=== PATIENT | female | born 1965 | race Caucasian/White ===

== ENCOUNTER 2017-05-19 03:05 | Observation (INO) | payer OTHER ==
[2017-05-19] MEDS ORDERED: SODIUM CHLORIDE 0.9% 1,000 ML IV ONE (03:28)
--- NOTE | 2017-05-19 03:30 | ED ---
General Adult HPI - General Chief complaint: GI Bleed Stated complaint: Abdominal Pain Time Seen by Provider: 05/19/17 03:09 Source: patient, RN notes reviewed, old records reviewed Mode of arrival: EMS Limitations: no limitations - History of Present Illness Initial comments: This is a 51-year-old female to the ER for evaluation of GI bleed. Patient is asked accepted in transfer for reevaluation of GI bleed. Patient had prior symptoms in the past. Does see GI doctor out of this hospital. Patient unsure of name. Patient denies any significant abdominal pain does have mild abdominal pain. Her blood per rectum 2 in the emergency room at [facility]. Patient denies feeling of lightheadedness dizziness or weakness. No recent fevers. No nausea vomiting - Related Data Allergies Allergy/AdvReac Type Severity Reaction Status Date / Time medroxyprogesterone AdvReac Unknown Verified 05/19/17 03:29 [From Provera] Review of Systems ROS Statement: Those systems with pertinent positive or pertinent negative responses have been documented in the HPI. ROS Other: All systems not noted in ROS Statement are negative. Past Medical History Past Medical History: Cancer, Fibromyalgia, GERD/Reflux, GI Bleed Additional Past Medical History / Comment(s): gastritis, polycythemia vera (on chemo x 9 yrs) History of Any Multi-Drug Resistant Organisms: None Reported Past Surgical History: Hysterectomy Additional Past Surgical History / Comment(s): upper and lower GI, port insertion and removal Past Psychological History: Anxiety, Bipolar, Depression Smoking Status: Never smoker Past Alcohol Use History: None Reported Past Drug Use History: None Reported General Exam Limitations: no limitations General appearance: alert, in no apparent distress Head exam: Present: atraumatic, normocephalic, normal inspection Eye exam: Present: normal appearance, PERRL, EOMI. Absent: scleral icterus, conjunctival injection, periorbital swelling ENT exam: Present: normal exam, mucous membranes moist Neck exam: Present: normal inspection. Absent: tenderness, meningismus, lymphadenopathy Respiratory exam: Present: normal lung sounds bilaterally. Absent: respiratory distress, wheezes, rales, rhonchi, stridor Cardiovascular Exam: Present: regular rate, normal rhythm, normal heart sounds. Absent: systolic murmur, diastolic murmur, rubs, gallop, clicks GI/Abdominal exam: Present: soft, normal bowel sounds. Absent: distended, tenderness, guarding, rebound, rigid Extremities exam: Present: normal inspection, full ROM, normal capillary refill. Absent: tenderness, pedal edema, joint swelling, calf tenderness Back exam: Present: normal inspection Neurological exam: Present: alert, oriented X3, CN II-XII intact Psychiatric exam: Present: normal affect, normal mood Skin exam: Present: warm, dry, intact, normal color. Absent: rash Course Vital Signs 05/19/17 03:10 Temperature 98.4 F Pulse Rate 95 Respiratory 16 Rate Blood Pressure 149/67 O2 Sat by Pulse 97 Oximetry - Reevaluation(s) Reevaluation #1: 05/19/17 03:30 Transfer paperwork is reviewed, hemoglobin 16, patient does have polycythemia vera Medical Decision Making - Medical Decision Making 51 female DEL with positive GI bleed bright red blood per rectum, patient be admitted for monitoring of hemoglobin and GI evaluation Disposition Clinical Impression: Lower gastrointestinal hemorrhage, Gastrointestinal hemorrhage Disposition: ADMITTED IP TO THIS HOSP Instructions: Gastrointestinal Bleeding (ED) Referrals: Nonstaff,Physician [Primary Care Provider] - 1-2 days
[2017-05-19] MEDS ORDERED: HYDROXYUREA 500 MG CAP PO SCH (09:00)
[2017-05-19 14:33] LABS: Basophils % (A) 0 %; Eosinophils # (A) 0.2 k/uL (0-0.7); Eosinophils % (A) 2 %; HCT 42.9 % (34.0-46.0); HGB 14.6 gm/dL (11.4-16.0); Lymphocytes % (A) 20 %; MCH 33.8 pg (25.0-35.0); MCV 99.6 fL (80.0-100.0); Mean Platelet Volume 7.5; Monocytes # (A) 0.5 k/uL (0-1.0); Monocytes % (A) 5 %; Neutrophils # (A) 6.9 k/uL (1.3-7.7); Neutrophils % (A) 71 %; Platelet Count 363 k/uL (150-450); RDW 13.5 % (11.5-15.5); WBC 9.7 k/uL (3.8-10.6)
[2017-05-19] MEDS ORDERED: busPIRone HCl 10 MG TAB PO PRN (14:35)
--- NOTE | 2017-05-19 15:24 | P.HPIM ---
History of Present Illness 51-year-old female came in with complaints of bright red blood per rectum couple episodes yesterday in couple episodes today. All patient's symptoms started yesterday with abdominal cramping nausea patient's hemoglobin is presently 14.6 yesterday it was around 16.8. Patient does have history of polycythemia rubra vera and patient uses hydroxyurea for that. Patient had a colonoscopy about any ago without any significant abnormalities that were appreciated during that colonoscopy. Patient denied any significant abdominal pain at this point of time. Patient denied any dysuria. Denied any vomiting. Patient had couple episodes of lower GI bleed with significant amount of blood in the stools today Review of Systems REVIEW OF SYSTEMS: CONSTITUTIONAL: No fever, no malaise, no fatigue. HEENT: No recent visual problems or hearing problems. Denied any sore throat. CARDIOVASCULAR: No chest pain, orthopnea, PND, no palpitations, no syncope. PULMONARY: No shortness of breath, no cough, no hemoptysis. GASTROINTESTINAL: As mentioned in HPI NEUROLOGICAL: No headaches, no weakness, no numbness. HEMATOLOGICAL: Denies any bleeding or petechiae. GENITOURINARY: Denies any burning micturition, frequency, or urgency. MUSCULOSKELETAL/RHEUMATOLOGICAL: Denies any joint pain, swelling, or any muscle pain. ENDOCRINE: Denies any polyuria or polydipsia. The rest of the 14-point review of systems is negative. Past Medical History Past Medical History: Cancer, Fibromyalgia, GERD/Reflux, GI Bleed Additional Past Medical History / Comment(s): gastritis, polycythemia vera (on chemo x 9 yrs) History of Any Multi-Drug Resistant Organisms: None Reported Past Surgical History: Hysterectomy Additional Past Surgical History / Comment(s): upper and lower GI, port insertion and removal Past Anesthesia/Blood Transfusion Reactions: No Reported Reaction Past Psychological History: Anxiety, Bipolar, Depression Smoking Status: Never smoker Past Alcohol Use History: None Reported Past Drug Use History: None Reported Medications and Allergies Home Medications Medication Instructions Recorded Confirmed Type Aspirin 325 mg PO DAILY 05/19/17 05/19/17 History Esomeprazole Magnesium [NexIUM] 40 mg PO DAILY 05/19/17 05/19/17 History Hydroxyurea [Hydrea] 1,000 mg PO Q48H 05/19/17 05/19/17 History Hydroxyurea [Hydrea] 500 mg PO Q48H 05/19/17 05/19/17 History Lisinopril [Zestril] 2.5 mg PO DAILY 05/19/17 05/19/17 History Meclizine [Antivert] 25 mg PO DAILY 05/19/17 05/19/17 History Promethazine [Phenergan] 12.5 mg PO Q4HR PRN 05/19/17 05/19/17 History Ranitidine HCl [Zantac] 150 mg PO HS 05/19/17 05/19/17 History busPIRone HCl [Buspar] 10 mg PO DAILY PRN 05/19/17 05/19/17 History risperiDONE 0.5 mg PO HS 05/19/17 05/19/17 History Allergies Allergy/AdvReac Type Severity Reaction Status Date / Time acetaminophen AdvReac Hallucinati Verified 05/19/17 08:19 [From Darvocet-N] ons ibuprofen [From Motrin] AdvReac Unknown Verified 05/19/17 08:19 medroxyprogesterone AdvReac Unknown Verified 05/19/17 08:19 [From Provera] morphine AdvReac Nausea & Verified 05/19/17 08:19 Vomiting propoxyphene AdvReac Hallucinati Verified 05/19/17 08:19 [From Darvocet-N] ons Physical Exam Vitals: Vital Signs Temp Pulse Pulse Resp BP BP Pulse Ox 05/19/17 14:40 98 F 93 16 131/77 97 05/19/17 07:00 98.9 F 92 16 112/55 95 05/19/17 04:36 99.0 F 91 16 110/56 95 05/19/17 04:03 98.1 F 90 18 115/75 05/19/17 03:10 98.4 F 95 16 149/67 97 Intake and Output 05/19/17 05/19/17 05/19/17 06:59 14:59 22:59 Other: # Voids 1 3 # Bowel Movements 1 Weight 107.501 kg PHYSICAL EXAMINATION: GENERAL: The patient is alert and oriented x3, not in any acute distress. Well developed, well nourished. HEENT: Pupils are round and equally reacting to light. EOMI. No scleral icterus. No conjunctival pallor. Normocephalic, atraumatic. No pharyngeal erythema. No thyromegaly. CARDIOVASCULAR: S1 and S2 present. No murmurs, rubs, or gallops. PULMONARY: Chest is clear to auscultation, no wheezing or crackles. ABDOMEN: Soft, nontender, nondistended, normoactive bowel sounds. No palpable organomegaly. MUSCULOSKELETAL: No joint swelling or deformity. EXTREMITIES: No cyanosis, clubbing, or pedal edema. NEUROLOGICAL: Gross neurological examination did not reveal any focal deficits. SKIN: No rashes. Results CBC & Chem 7: 05/19/17 14:19 Thrombosis Risk Factor Assmnt - Choose All That Apply Each Factor Represents 1 point: Age 41-60 years Thrombosis Risk Factor Assessment Total Risk Factor Score: 1 Thrombosis Risk Factor Assessment Level: Low Risk Assessment and Plan Plan: -Lower GI bleed and acute blood loss anemia secondary to that: Unsure of the exact etiology can be diverticular bleeding. Gastric body will evaluated the patient will monitor her closely for any further episodes of GI bleed. -Polycythemia rubra Vera -hypertension: Hold off on OMAR inhibitor because of hypotension. -Fibromyalgia -gastroesophageal reflux disease -Depression For above-mentioned chronic medical problems patient was resumed on appropriate home medications.
[2017-05-19] MEDS: ACETAMINOPHEN TAB 325 MG TAB PO PRN (19:21)
--- NOTE | 2017-05-19 19:44 | CONS ---
CONSULTATION DATE OF DICTATION: 05/19/2017 REASON FOR CONSULTATION: Abdominal pain and bloody diarrhea. HISTORY OF PRESENT ILLNESS: The patient is a 51-year-old pleasant white female with history of myelodysplastic syndrome/polycythemia vera who was transferred from [facility] when she presented with acute onset of lower abdominal pain followed by bloody diarrhea that started yesterday evening. She had intense severe pain associated with sweats and dizziness and subsequently had 2 episodes of diarrhea. Following this, she went to the emergency room at [facility], when she started having bright red blood per rectum. She had about 3 or 4 episodes and was transferred to [facility] for further evaluation. She did have a CT of the abdomen and pelvis done in the emergency room at [facility] that was reported as negative. Her hemoglobin was 15.6 g/dL. Since being here, she is doing much better. Abdominal pain has improved. Her last bowel movement was early this morning with small amount of blood and mucus-yesterday material. She reports no fever, chills, night sweats. No other family members have similar symptoms. Her last colonoscopy at [facility] about a year ago was unremarkable. PAST MEDICAL HISTORY: 1. Myelodysplastic syndrome/polycythemia vera. 2. Fibromyalgia. 3. GERD. PAST SURGICAL HISTORY: 1. Hysterectomy. 2. EGD and colonoscopy a year ago. 3. Anxiety. 4. Depression. HOME MEDICATIONS: 1. Zantac. 2. BuSpar. 3. Risperidone. 4. Phenergan. 5. Antivert. 6. Zestril. 7. Hydrea. 8. Nexium. 9. Aspirin. ALLERGIES: 1. MOTRIN. 2. PROVERA. 3. MORPHINE. 4. DARVOCET. SOCIAL HISTORY: No smoking or alcohol use. FAMILY HISTORY: Unremarkable. REVIEW OF SYSTEMS: CARDIOPULMONARY: No chest pain, shortness of breath. GENITOURINARY: No dysuria or hematuria. MUSCULOSKELETAL: Unremarkable. SKIN: Unremarkable. ENDOCRINE: Unremarkable. PSYCHIATRIC: Unremarkable. NEUROLOGY: Unremarkable. ENT/VISION: Unremarkable. CONSTITUTIONAL: No recent weight loss. No fever, chills, night sweats. HEMATOLOGY: As mentioned above. PHYSICAL EXAMINATION: She appears comfortable. No apparent distress. Vital signs are stable. Blood pressure 149/69, pulse rate 95, temperature 98.4. HEENT EXAMINATION: Unremarkable. Conjunctivae pink. Sclerae anicteric. Oral cavity no lesions. NECK: No JVD or lymph node enlargement. Chest was clear to auscultation. HEART: Regular rate and rhythm. ABDOMEN: Soft. Bowel sounds are positive. Minimal tenderness in the left lower quadrant area. EXTREMITIES: No pedal edema. SKIN: No rashes. NEUROLOGIC: Alert and oriented x3. No focal deficits. LABS: Labs done today show WBC 9.7, hemoglobin 14.6 and platelets are 363. IMPRESSION: This is a lady who presented to the hospital with acute onset of lower abdominal pain followed by bloody diarrhea that started yesterday evening. The clinical picture is very consistent with acute ischemic colitis. Doubt infectious colitis. The patient is already feeling better. No further bleeding since early this morning. CT of the abdomen done at [facility] was unremarkable. She has a history of myeloproliferative disorder with polycythemia vera, which could be the contributing factor for acute ischemic colitis. Her last hemoglobin 14.6 g/dL. RECOMMENDATIONS: 1. Clear liquid diet. 2. No need for any antibiotics. 3. Stool studies. 4. If her symptoms continue to improve, she can be discharged home with outpatient followup in a couple of weeks. 5. Will not plan on any endoscopic intervention, as she had a colonoscopy about a year ago. Thank you for this consultation. MMODL / IJN: [id number] /
[2017-05-19] MEDS ORDERED: risperiDONE 0.5 MG TAB PO SCH (21:00)
[2017-05-19] MEDS ORDERED: PANTOPRAZOLE 40 MG TABLET PO ONE (22:15)
[2017-05-20] MEDS: SODIUM CHLORIDE 0.9% 1,000 ML IV SCH ×2 (05:16→07:56)
[2017-05-20 07:29] LABS: HCT 38.4 % (34.0-46.0); HGB 13.7 gm/dL (11.4-16.0); MCH 35.7 pg (25.0-35.0); MCHC 35.7 g/dL (31.0-37.0); MCV 100.2 fL (80.0-100.0); Mean Platelet Volume 7.1; Platelet Count 346 k/uL (150-450); RBC 3.83 m/uL (3.80-5.40); RDW 13.6 % (11.5-15.5); WBC 6.4 k/uL (3.8-10.6)
[2017-05-20] MEDS ORDERED: PANTOPRAZOLE 40 MG TABLET PO SCH (07:30)
[2017-05-20 07:42] LABS: Anion Gap 10 mmol/L; Blood Urea Nitrogen 8 mg/dL (7-17); Carbon Dioxide 24 mmol/L (22-30); Chloride 108 mmol/L (98-107); Glucose 93 mg/dL (74-99); Potassium 4.3 mmol/L (3.5-5.1); Sodium 142 mmol/L (137-145)
[2017-05-20] MEDS: ACETAMINOPHEN TAB 325 MG TAB PO PRN (07:56)
[2017-05-20] MEDS ORDERED: HYDROXYUREA 500 MG CAP PO SCH (09:00)
--- NOTE | 2017-05-20 12:24 | PN ---
PROGRESS NOTE DATE OF SERVICE: May 20, 2017. REQUESTING PHYSICIAN: None. The patient is a 51-year-old pleasant white female admitted to hospital with acute onset of lower abdominal pain followed by bloody diarrhea of 1 day duration. She was transferred from [facility]. She had a CT of the abdomen and pelvis done there which was unremarkable. This morning she is feeling better. She did not have any bowel movements for the last 24 hours. No bleeding. Abdominal pain has resolved. No nausea, vomiting. Denies any fever, chills, or night sweats. PHYSICAL EXAMINATION: She appears comfortable. No apparent distress. VITAL SIGNS: Stable. Blood pressure is 136/79, pulse rate 101, temperature 97.9, HEENT examination unremarkable. Conjunctivae pink. Sclerae anicteric. Oral cavity no lesions. Neck: No jugular venous distention or lymph node enlargement. Chest was clear to auscultation. HEART: Regular rate and rhythm. ABDOMEN: Soft. Bowel sounds are positive. No organomegaly. Extremities: No pedal edema. Skin no rashes. NEUROLOGIC: Alert and oriented x3. No focal deficits. LABORATORY DATA: Labs done from today WBC 9.7, hemoglobin 13.7, and platelets are normal. Basic metabolic panel is within normal limits. IMPRESSION: 1. This is a patient who was admitted to the hospital with acute onset of lower abdominal pain followed by bloody diarrhea of 24 hour duration. Her clinical picture is very consistent with ischemic colitis, which since has been resolving, she is doing well. No further bleeding. Abdominal pain has resolved. Hemoglobin stable at 13.7 g/dL. 2. History of polycythemia vera on Hydrea. She follows with a commercial airplane pilot in [facility]. RECOMMENDATION: 1. Advance diet as tolerated. 2. Patient can be discharged home today with outpatient follow up in 2-3 weeks. 3. No need for any endoscopic intervention at the present time. Thank you for this consultation. MMODL / IJN: [id number] /
--- NOTE | 2017-05-20 14:37 | P.DS ---
Providers Date of admission: 05/19/17 03:30 Attending physician: Alonso Toledo Consults: 05/19/17 03:28 Consult Physician Routine Consulting Provider: Ed Landin Consult Reason/Comments: gib Do you want consulting provider notified?: Yes Primary care physician: Polly Soria [facility] Course: 51-year-old female admitted for lower GI bleed probably secondary to ischemic colitis patient has improved symptoms no more GI bleed and patient was cleared for discharge patient will follow-up with the primary get patient and gastroenterology as an outpatient. Abdominal pain completely resolved PHYSICAL EXAMINATION: GENERAL: The patient is alert and oriented x3, not in any acute distress. Well developed, well nourished. HEENT: Pupils are round and equally reacting to light. EOMI. No scleral icterus. No conjunctival pallor. Normocephalic, atraumatic. No pharyngeal erythema. No thyromegaly. CARDIOVASCULAR: S1 and S2 present. No murmurs, rubs, or gallops. PULMONARY: Chest is clear to auscultation, no wheezing or crackles. ABDOMEN: Soft, nontender, nondistended, normoactive bowel sounds. No palpable organomegaly. MUSCULOSKELETAL: No joint swelling or deformity. EXTREMITIES: No cyanosis, clubbing, or pedal edema. NEUROLOGICAL: Gross neurological examination did not reveal any focal deficits. SKIN: No rashes. Her other chronic medical problems and hospitalization course please refer to my HPI from yesterday Plan - Discharge Summary Discharge Rx Participant: Yes New Discharge Prescriptions: No Action Hydroxyurea [Hydrea] 500 mg PO Q48H Lisinopril [Zestril] 2.5 mg PO DAILY Aspirin 325 mg PO DAILY Promethazine [Phenergan] 12.5 mg PO Q4HR PRN PRN Reason: Nausea risperiDONE 0.5 mg PO HS Ranitidine HCl [Zantac] 150 mg PO HS Meclizine [Antivert] 25 mg PO DAILY Esomeprazole Magnesium [NexIUM] 40 mg PO DAILY Hydroxyurea [Hydrea] 1,000 mg PO Q48H busPIRone HCl [Buspar] 10 mg PO DAILY PRN PRN Reason: Anxiety Discharge Medication List Aspirin 325 mg PO DAILY 05/19/17 [History] Esomeprazole Magnesium [NexIUM] 40 mg PO DAILY 05/19/17 [History] Hydroxyurea [Hydrea] 1,000 mg PO Q48H 05/19/17 [History] Hydroxyurea [Hydrea] 500 mg PO Q48H 05/19/17 [History] Lisinopril [Zestril] 2.5 mg PO DAILY 05/19/17 [History] Meclizine [Antivert] 25 mg PO DAILY 05/19/17 [History] Promethazine [Phenergan] 12.5 mg PO Q4HR PRN 05/19/17 [History] Ranitidine HCl [Zantac] 150 mg PO HS 05/19/17 [History] busPIRone HCl [Buspar] 10 mg PO DAILY PRN 05/19/17 [History] risperiDONE 0.5 mg PO HS 05/19/17 [History] Follow up Appointment(s)/Referral(s): Nonstaff,Physician [REFERRING] - 1-2 days Patient Instructions/Handouts: Gastrointestinal Bleeding (ED) Discharge Disposition: HOME SELF-CARE
[2017-05-20 15:00] VITALS: BP 140/80; PULSE 100; RESP 18; TEMP 97.8
== END 2017-05-20 16:46 | disposition home or self-care (01) ==
LOC: EC 03:05 → 3SUR 03:30
PROVIDERS: ADMIT Hospitalist; ATTEND Hospitalist
DX: K92.2 Gastrointestinal hemorrhage, unspecified (principal); D45 Polycythemia vera; D46.9 Myelodysplastic syndrome, unspecified; D62 Acute posthemorrhagic anemia; M79.7 Fibromyalgia; K21.9 Gastro-esophageal reflux disease without esophagitis; R10.30 Lower abdominal pain, unspecified; I10 Essential (primary) hypertension; R11.0 Nausea; R19.7 Diarrhea, unspecified; F31.9 Bipolar disorder, unspecified; F41.9 Anxiety disorder, unspecified; I95.9 Hypotension, unspecified; Z90.710 Acquired absence of both cervix and uterus; Z87.19 Personal history of other diseases of the digestive system; Z92.21 Personal history of antineoplastic chemotherapy; Z79.82 Long term (current) use of aspirin; Z79.899 Other long term (current) drug therapy; Z88.6 Allergy status to analgesic agent; Z88.5 Allergy status to narcotic agent; Z88.8 Allergy status to other drugs, medicaments and biological substances
CPT/HCPCS: 99285 ×2; 96360; 96361; 80048; 85025; 85027; G0378 ×2; S0176 ×2